=== PATIENT | female | born 1960 | race Caucasian/White ===

== ENCOUNTER → 2016-06-07 | Outpatient (CLI) | payer OTHER ==
[~2016-06-07] MED LIST: ABILIFY10 MG PO; AMBIEN 5 MG TABL5 M1; ANALGESIC325 MG PO; AVANDIA PO; BACTRIM DS TAB1 EACH; CINSULIN; ENALAPRIL MALEA20 MG PO; FIBER; FISH OIL 1,2001 EAC3 PO; GARLIC CHOLEST300 MG PO; GLUCOPHAGE1000 MG PO; GLUCOSAMINE &1 EACH; HCTZ; HUMALOG100 UNIT/2 SQ; HYDROCHLOROTHIA25 M2 PO; HYDROCODON-ACE1 EAC5; HYDROCODONE-APA1 TA1 PO; IBUPROFEN 800800 MG PO; KLONOPIN2 MG NG; LANTUS100 UNIT/M SUBQ; MOBIC7.5 MG PO; MS CONTIN15 MG PO; MULTI FOR HER400 MCG; NEURONTIN 300300 M1 PO; NEXIUM40 MG PO; NORCO 5-325 TA1 EACH PO; OMEPRAZOLE20 M2 PO; PERCOCET 5-3251 EACH PO; PHENTERMINE HCL30 MG PO; PROTONIX40 M2; PROZAC20 MG PO; RELAFEN750 MG PO; ROBAXIN500 MG PO; STOOL SOFTENER1 EAC1; TOPAMAX50 MG PO; TOPROL XL100 MG PO; VERAPAMIL ER180 M1; VIVACTIL10 MG PO; WELLBUTRIN XL300 M1 PO; XANAX 0.5 MG0.5 MG PO; [UNRECOGNIZED DRUG - OTHER]
== END ==
LOC: RAD 15:39
DX: J98.11 Atelectasis (principal); J90 Pleural effusion, not elsewhere classified; R07.9 Chest pain, unspecified

== ENCOUNTER 2017-07-04 22:35 | Emergency (ER) | payer OTHER, MEDICARE ==
[~2017-07-04] VITALS: Ht 172.7 cm; Wt 176.9 kg
--- NOTE | ~2017-07-04 | EKG ---
[facility] [place] [address] [facility] [place] [address] ELECTROCARDIOGRAM REPORT Name: FAUSTO BELLO 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1960 Requested By: Marilynn Lee Order Number: [id number] MD: William Hernández Measurements Intervals [place] Rate: 98 P: 58 MO: 198 QRS: 1 QRSD: 96 T: 102 QT: 365 QTc: 467 Interpretive Statements Sinus rhythm Borderline repolarization abnormality Compared to ECG 07/07/2014 15:35:51 No significant changes Electronically Signed On 07-05-2017 7:50:07 [employer] by William Hernández [email or web address] <ELECTRONICALLY SIGNED> By: William Hernández MD, [facility] 07/05/17 0750 [id number] William Hernández MD, FACC /EPI
[2017-07-04] MEDS ORDERED: NOVOLOG100 UNIT/1 SUBQ (22:47)
[2017-07-04] MEDS ORDERED: NABUMETONE 750750 M1 PO (22:50)
[2017-07-04] MEDS ORDERED: NEXIUM40 MG PO (22:50)
[2017-07-04] MEDS ORDERED: IBUPROFEN 800800 M1 PO (22:54)
[2017-07-04] MEDS ORDERED: [UNRECOGNIZED DRUG - OTHER] PO (22:54)
[2017-07-04] MEDS ORDERED: CINSULIN PO (22:55)
[2017-07-04] MEDS ORDERED: VITAMIN D3400 UNIT PO (22:56)
[2017-07-04 23:18] LABS: ABSOLUTE NEUTROPHILS 6.8 thou/uL (1.4-8.2); BASOPHILS 1.2 % (0.0-2.0); EOSINOPHILS 2.9 % (0.0-3.0); HEMATOCRIT 42.4 % (37.0-47.0); HEMOGLOBIN 14.4 gm/dL (12.0-15.0); LYMPHOCYTES 34.4 % (24.0-44.0); MCH 28.3 pg (26.0-34.0); MCHC 33.9 g/dL (28.0-37.0); MCV 83.4 fL (80.0-100.0); MONOCYTES 4.8 % (1.0-8.0); PLATELET COUNT 260 thou/uL (150-400); POLYS 56.7 % (36.0-66.0); RBC 5.08 mil/uL (4.20-5.00)
[2017-07-04 23:26] LABS: ANION GAP 10 mmol/L (7-16); BUN 20 mg/dL (7-18); CALCIUM 9.4 mg/dL (8.5-10.1); CHLORIDE 105 mmol/L (98-107); CO2 28 mmol/L (21-32); CREATININE 1.1 mg/dL (0.6-1.0); GLUCOSE 136 mg/dL (74-106); POTASSIUM 3.5 mmol/L (3.5-5.1); SODIUM 143 mmol/L (136-145)
[2017-07-04 23:34] LABS: TROPONIN-I < 0.04 ng/mL (<0.06)
[2017-07-05] MEDS ORDERED: NORCO 5-325 TA1 EACH PO (00:02)
[2017-07-05] MEDS ORDERED: FLONASE 0.05%50 MCG NASAL (00:14)
[2017-07-05 00:18] VITALS: BP 108/45
== END 2017-07-05 00:20 | disposition home or self-care (01) ==
LOC: ER 22:35
PROVIDERS: Emergency Medicine
DX: G43.909 Migraine, unspecified, not intractable, without status migrainosus (principal); R07.9 Chest pain, unspecified; R06.00 Dyspnea, unspecified; J32.9 Chronic sinusitis, unspecified; I10 Essential (primary) hypertension; E11.9 Type 2 diabetes mellitus without complications; G47.30 Sleep apnea, unspecified; F17.210 Nicotine dependence, cigarettes, uncomplicated; Z91.011 Allergy to milk products

== ENCOUNTER 2018-09-19 20:06 | Emergency (ER) | payer OTHER, MEDICARE ==
[~2018-09-19] VITALS: Ht 170.2 cm; Wt 181.4 kg
[~2018-09-19 20:06] MED LIST changes: +CINSULIN PO; +FLONASE 0.05%50 MCG NASAL; +IBUPROFEN 800800 M1 PO; +NABUMETONE 750750 M1 PO; +NOVOLOG100 UNIT/1 SUBQ; +VITAMIN D3400 UNIT PO; +[UNRECOGNIZED DRUG - OTHER] PO
[2018-09-19 21:10] LABS: ABSOLUTE NEUTROPHILS 6.8 thou/uL (1.4-8.2); BASOPHILS 1.3 % (0.0-2.0); EOSINOPHILS 2.4 % (0.0-3.0); HEMATOCRIT 43.4 % (37.0-47.0); HEMOGLOBIN 14.7 gm/dL (12.0-15.0); LYMPHOCYTES 33.8 % (24.0-44.0); MCH 28.7 pg (26.0-34.0); MCHC 33.8 g/dL (28.0-37.0); MCV 84.8 fL (80.0-100.0); MONOCYTES 4.9 % (1.0-8.0); PLATELET COUNT 249 thou/uL (150-400); POLYS 57.6 % (36.0-66.0); RBC 5.11 mil/uL (4.20-5.00); RDW 15.1 % (10.5-14.5); WBC 11.8 thou/uL (4.0-11.0)
[2018-09-19 21:13] LABS: BE(vivo) -1.9 mmol/L (-2 to +3); HCO3 23.8 mmol/L (22.0-26.0); PCO2 VENOUS 43.8 mmHg (41.0-51.0); PO2 VENOUS 36.7 mmHg (35.0-45.0)
[2018-09-19 21:16] LABS: CALCIUM 10.5 mg/dL (8.5-10.1); POTASSIUM 3.8 mmol/L (3.5-5.1)
[2018-09-19 21:22] LABS: ALBUMIN 3.9 g/dL (3.4-5.0); TOTAL BILIRUBIN 0.3 mg/dL (<0.1-1.0); TOTAL PROTEIN 8.3 g/dL (6.4-8.2)
[2018-09-19 22:11] LABS: URINE BILIRUBIN NEGATIVE (Negative); URINE BLOOD NEGATIVE (Negative); URINE CLARITY SL CLOUDY; URINE COLOR YELLOW; URINE GLUCOSE-RANDOM* 2+ (Negative); URINE KETONES NEGATIVE (Negative); URINE PROTEIN (DIPSTICK) NEGATIVE (Negative); URINE SPECIFIC GRAVITY 1.025 (1.005-1.035); URINE UROBILINOGEN 0.2 E.U./dl (0.2-1.0)
[2018-09-19 22:16] LABS: URINE LEUKOCYTES-REFLEX 1+ (Negative); URINE NITRITE-REFLEX POSITIVE (Negative)
[2018-09-19 22:23] LABS: BACTERIA-REFLEX >30 Many /HPF (None Seen); CRYSTALS None Seen /LPF (None Seen); HYALINE CASTS 0-3 Few /LPF (None Seen); MUCUS 0-3 Light strn/LPF (None Seen); SQUAMOUS 0-3 Few /LPF (0-3); URINE RBC 3-10 Few /HPF (0-2)
[2018-09-20] MEDS ORDERED: MACROBID 100 M100 M1 PO (00:13)
[2018-09-20 00:30] VITALS: BP 120/40
== END 2018-09-20 00:34 | disposition home or self-care (01) ==
LOC: ER 20:06
PROVIDERS: Physician Assistant
DX: N39.0 Urinary tract infection, site not specified (principal); E11.622 Type 2 diabetes mellitus with other skin ulcer; L97.118 Non-pressure chronic ulcer of right thigh with other specified severity; R42 Dizziness and giddiness; G47.30 Sleep apnea, unspecified; F32.9 Major depressive disorder, single episode, unspecified; F41.0 Panic disorder [episodic paroxysmal anxiety]; I10 Essential (primary) hypertension; G43.909 Migraine, unspecified, not intractable, without status migrainosus; F17.210 Nicotine dependence, cigarettes, uncomplicated; Z88.1 Allergy status to other antibiotic agents; Z91.011 Allergy to milk products; Z79.4 Long term (current) use of insulin; Z90.710 Acquired absence of both cervix and uterus; Z85.42 Personal history of malignant neoplasm of other parts of uterus

== ENCOUNTER → 2018-10-06 | Outpatient (CLI) | payer OTHER, MEDICARE ==
[~2018-10-06] MED LIST changes: +MACROBID 100 M100 M1 PO
== END ==
LOC: ULTRA 10-02 10:35
DX: R16.0 Hepatomegaly, not elsewhere classified (principal)

== ENCOUNTER → 2019-07-23 | Outpatient (CLI) | payer OTHER, MEDICARE | LOC: BC 14:04 | DX: Z12.31 Encounter for screening mammogram for malignant neoplasm of breast (principal) ==

== ENCOUNTER → 2019-11-16 | Outpatient (CLI) | payer OTHER, MEDICARE | LOC: CAT 10:14 → SLEEPLAB 10:20 → CAT 10:22 | PROVIDERS: ATTEND Internal Medicine Critical Care Medicine | DX: J84.10 Pulmonary fibrosis, unspecified (principal); I25.10 Atherosclerotic heart disease of native coronary artery without angina pectoris; K76.0 Fatty (change of) liver, not elsewhere classified ==

== ENCOUNTER → 2019-11-17 | Outpatient (CLI) | payer OTHER, MEDICARE ==
--- NOTE | 2019-11-24 17:58 | SLE ---
[facility] [address] POLYSOMNOGRAPHY STUDY Name: FAUSTO BELLO Room #: [facility]#: [id number] Admission: 11/17/19 Attend Phys: José Antonio Jackson MD Discharge: Date of : 64 Report #: [id number] THIS REPORT FOR: //name// CC: José Antonio Calles DATE OF SERVICE: 11/18/2019 SLEEP STUDY ATTENDING PHYSICIAN: Dr. Marvin Wang. The patient is a 59-year-old who weighs 406 pounds with a BMI of 63.6. The patient's [place] score was 6. The patient underwent split night study performed at [facility]. During the night of the study, the patient spent 441 minutes in bed and slept for 322 minutes with a sleep efficiency of 73%. Sleep latency was 20.2 minutes with a REM latency of 306 minutes. Sleep architecture showed a normal stage 1 sleep, increased stage 2 sleep, normal slow wave and reduced REM sleep, which was 10% of total sleep time. During the initial diagnostic portion of the study, the patient slept for 142 minutes. During that time, the patient had 65 obstructive apneas, no mixed or central apneas and 131 hypopneas. The patient's AHI was 82.5 per hour. REM sleep was not seen during the diagnostic portion. Supine AHI of 104 per hour. EKG monitoring revealed normal sinus rhythm. Average heart rate 67 beats per minute. No sustained arrhythmias observed. No clinically significant PLM seen. Nocturnal oximetry study revealed an average oxygen saturation of 92% with a lowest of 83%. 25 minutes were spent in oxygen saturation less than 89%. The patient met the criteria for CPAP initiation. It was started at 5 cm water and titrated up to 16 cm water. Best results were seen at a CPAP pressure of 14 cm water. The patient slept for 76 minutes including 33 minutes of lateral REM sleep. The patient's AHI was reduced to 4.6 per hour and oxygen saturation remained above 89%. At 16 cm water, the patient did not have REM sleep, but the patient's AHI was 0 per hour. 14 cm water should be optimum CPAP pressure. IMPRESSION: 1. Severe obstructive sleep apnea at an AHI of 82.5 per hour. 2. Nocturnal hypoxia secondary to obstructive sleep apnea, but resolved with [facility] [address] [place] [address] POLYSOMNOGRAPHY STUDY Name: FAUSTO BELLO Room #: [facility]#: [id number] Admission: 11/17/19 Attend Phys: oJsé Antonio Jackson MD Discharge: Date of : 64 Report #: [id number] CPAP. 3. No clinically significant periodic limb movements. RECOMMENDATIONS: 1. CPAP at 14 cm of water completely eliminated the patient's sleep apnea and should be used on a nightly basis. 2. Follow up in 4-6 weeks to assess compliance with CPAP and to document clinical improvement. 3. Weight loss is strongly advised. 4. Avoid HAND PASTER depressants. 5. Cautioned regarding driving until symptoms of sleep apnea resolve with the use of CPAP. <ELECTRONICALLY SIGNED> By: José Antonio Jackson MD 11/24/19 1758 [id number] José Antonio Jackson MD /nt
== END ==
LOC: SLEEPLAB 20:30
PROVIDERS: ATTEND Internal Medicine Critical Care Medicine
DX: G47.33 Obstructive sleep apnea (adult) (pediatric) (principal)

== ENCOUNTER 2020-01-03 17:25 | Emergency (ER) | payer OTHER, MEDICARE ==
[~2020-01-03] VITALS: Ht 170.2 cm; Wt 181.4 kg
[2020-01-03 18:22] VITALS: BP 137/52
== END 2020-01-03 18:22 | disposition home or self-care (01) ==
LOC: ER 17:25
DX: S61.211A Laceration without foreign body of left index finger without damage to nail, initial encounter (principal); E11.9 Type 2 diabetes mellitus without complications; I10 Essential (primary) hypertension; Z90.711 Acquired absence of uterus with remaining cervical stump; F32.9 Major depressive disorder, single episode, unspecified; F41.0 Panic disorder [episodic paroxysmal anxiety]; G43.909 Migraine, unspecified, not intractable, without status migrainosus; F17.210 Nicotine dependence, cigarettes, uncomplicated; Z79.899 Other long term (current) drug therapy; Z79.82 Long term (current) use of aspirin; Z79.4 Long term (current) use of insulin; Z91.011 Allergy to milk products; Z88.1 Allergy status to other antibiotic agents; W26.0XXA Contact with knife, initial encounter; Y93.89 Activity, other specified; Y92.098 Other place in other non-institutional residence as the place of occurrence of the external cause; Y99.8 Other external cause status

== ENCOUNTER 2021-05-08 20:17 | Emergency (ER) | payer OTHER, MEDICARE ==
[~2021-05-08] VITALS: Ht 170.2 cm; Wt 188.2 kg
[~2021-05-08 20:17] MED LIST changes: +MEDROLDOSEPACK PO
[2021-05-08 21:35] LABS: ABSOLUTE NEUTROPHILS 5.6 thou/uL (1.4-8.2); BASOPHILS 0.2 % (0.0-2.0); EOSINOPHILS 2.1 % (0.0-3.0); HEMATOCRIT 41.2 % (37.0-47.0); HEMOGLOBIN 13.7 gm/dL (12.0-15.0); LYMPHOCYTES 31.6 % (24.0-44.0); MCH 28.9 pg (26.0-34.0); MCHC 33.2 g/dL (28.0-37.0); MCV 86.9 fL (80.0-100.0); MONOCYTES 5.1 % (1.0-8.0); PLATELET COUNT 204 thou/uL (150-400); RBC 4.73 mil/uL (4.20-5.00); RDW 14.9 % (10.5-14.5); WBC 9.2 thou/uL (4.0-11.0)
[2021-05-08 21:42] LABS: ANION GAP 11 mmol/L (7-16); BUN 15 mg/dL (7-18); CALCIUM 9.4 mg/dL (8.5-10.1); CHLORIDE 103 mmol/L (98-107); CO2 28 mmol/L (21-32); CREATININE 0.9 mg/dL (0.6-1.0); GLUCOSE 261 mg/dL (74-106); POTASSIUM 3.7 mmol/L (3.5-5.1); SODIUM 142 mmol/L (136-145)
[2021-05-08 21:56] LABS: ALBUMIN 3.3 g/dL (3.4-5.0); SGOT 28 U/L (15-37); SGPT 44 U/L (14-59); TOTAL BILIRUBIN 0.4 mg/dL (0.2-1.0); TOTAL PROTEIN 7.1 g/dL (6.4-8.2)
[2021-05-08] MEDS ORDERED: CLOTRIMAZOLE-321 GM TOP (22:47)
[2021-05-08 23:05] VITALS: BP 153/52
--- NOTE | 2021-05-09 07:19 | EKG ---
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1960 Requested By: Autumn Valle Order Number: [id number] MD: Clark Barton Measurements Intervals [place] Rate: 84 P: 51 DC: 197 QRS: -18 QRSD: 99 T: 87 QT: 383 QTc: 453 Interpretive Statements Sinus rhythm Abnormal R-wave progression, late transition Probable LVH with secondary repol abnrm Compared to ECG 01/20/2021 11:41:57 No significant changes Electronically Signed On 05-09-2021 7:19:08 [employer]DICTIONS RECOVERY SPECIALIST by Clark Barton [email or web address] <ELECTRONICALLY SIGNED> By: Clark Barton MD, [facility] 05/09/21718 41 41 Clark Barton MD, FACC /EPI
== END 2021-05-08 23:16 | disposition home or self-care (01) ==
LOC: ER 20:17
PROVIDERS: Nurse Practitioner
DX: B37.9 Candidiasis, unspecified (principal); Z20.822 Contact with and (suspected) exposure to COVID-19; R07.89 Other chest pain; E11.9 Type 2 diabetes mellitus without complications; I10 Essential (primary) hypertension; F32.9 Major depressive disorder, single episode, unspecified; F41.9 Anxiety disorder, unspecified; G43.909 Migraine, unspecified, not intractable, without status migrainosus; F17.210 Nicotine dependence, cigarettes, uncomplicated; Z79.899 Other long term (current) drug therapy; Z91.011 Allergy to milk products